=== PATIENT | male | born 1975 | race Caucasian/White ===

== ENCOUNTER 2024-12-31 14:29 | Inpatient (IN) | payer OTHER ==
[2024-12-31 15:50] VITALS: BMI 29.9
[2024-12-31] MEDS ORDERED: IBUPROFEN 400 MG TABLET (FP) PO PRN (17:36)
[2024-12-31] MEDS ORDERED: BENZOCAINE/MENTHOL (CHLORASEPTIC ) LOZENGE MM PRN (17:36)
[2024-12-31] MEDS ORDERED: MAG HYDROX/AL HYDROX/SIMETH 30 ML UNIT-DOSE CUP PO PRN (17:36)
[2024-12-31] MEDS ORDERED: MAGNESIUM HYDROX 2400MG/30ML ORAL SUSPENSION 30 ML CUP PO PRN (17:36)
[2024-12-31] MEDS ORDERED: ONDANSETRON *ODT* 4 MG TABLET SL PRN (17:36)
[2024-12-31] MEDS ORDERED: BENZONATATE 200 MG CAPSULE PO PRN (17:36)
[2024-12-31] MEDS ORDERED: LOPERAMIDE HCL 2 MG CAPSULE PO PRN (17:36)
[2024-12-31] MEDS ORDERED: POLYETHYLENE GLYCOL (HEALTHYLAX) 3350 17 GM PACKET PO PRN (17:36)
[2024-12-31] MEDS ORDERED: NALOXONE (NARCAN) HCL 4 MG/0.1 ML SPRAY NS PRN (17:36)
[2024-12-31] MEDS ORDERED: BISMUTH SUBSALICYLATE 524 MG/30 ML PO PRN (17:36)
[2024-12-31] MEDS ORDERED: methaDONE HCL 10 MG TABLET (FOR DETOX USE ONLY) ONE (18:56)
[2024-12-31] MEDS: methaDONE HCL 10 MG TABLET (FOR DETOX USE ONLY) PO ONE (19:03)
[2024-12-31] MEDS: THIAMINE 100 MG TABLET PO SCH (22:33)
[2024-12-31] MEDS: METHOCARBAMOL 500 MG TABLET PO PRN (22:33)
[2024-12-31] MEDS: MELATONIN 5 MG TABLETS PO SCH (22:34)
[2024-12-31] MEDS: IBUPROFEN 600 MG TABLET (FP) PO PRN (22:38)
[2024-12-31] MEDS: ASPIRIN 325 MG ENTERIC COATED TABLET (FP) PO SCH (23:21)
[2025-01-01] MEDS: guaiFENesin 600 MG TABLET.ER (FP) PO PRN (06:34)
[2025-01-01] MEDS: cloNIDine HCL 0.1 MG TABLET PO PRN (06:34)
[2025-01-01] MEDS: DICYCLOMINE HCL 10 MG CAPSULE PO PRN (06:34)
[2025-01-01] MEDS: ACETAMINOPHEN 325 MG TABLET (FP) PO PRN (06:36)
[2025-01-01] MEDS: diazePAM 5 MG TABLET PO ONE (09:40)
[2025-01-01] MEDS: methaDONE HCL 10 MG TABLET (FOR DETOX USE ONLY) PO ONE (09:40)
[2025-01-01] MEDS: PRENATAL VITAMINS W/ FOLIC ACID TABLET (FP) PO SCH (09:40)
[2025-01-01 11:09] LABS: POTASSIUM 3.8 mmol/L (3.5-5.1)
[2025-01-01 11:10] LABS: CALCIUM 9.2 mg/dL (8.5-10.1)
[2025-01-01 11:11] LABS: ALBUMIN 3.8 g/dl (3.4-5.0); BLOOD UREA NITROGEN 15.1 mg/dL (7-18)
[2025-01-01 11:14] LABS: HEMATOCRIT 38.8 % (35.4-49); HEMOGLOBIN 13.1 GM/dL (11.7-16.9); MCH 29.6 pg (25.7-33.7); MCHC 33.7 g/dl (32.0-35.9); MEAN PLT VOLUME 8.5 fl (7.5-11.1); PLATELET COUNT 316 10^3/uL (134-434); RBC 4.41 M/mm3 (4.00-5.60); WHITE BLOOD COUNT 6.7 K/mm3 (4.0-10.0)
[2025-01-01 11:15] LABS: BILIRUBIN,TOTAL 0.5 mg/dL (0.2-1); TOT PROT 7.3 g/dl (6.4-8.2)
[2025-01-01] MEDS: diazePAM 5 MG TABLET PO PRN (20:52)
[2025-01-01] MEDS: P-EPHED 60MG/TRIPROLIDI 2.5MG TABLET PO PRN (23:47)
[2025-01-02] MEDS: methaDONE HCL 10 MG TABLET (FOR DETOX USE ONLY) PO ONE ×2 (09:07→19:47)
[2025-01-02] MEDS: SUVOREXANT 10 MG TABLET PO PRN (21:24)
[2025-01-03] MEDS ORDERED: diazePAM 5 MG TABLET ONE (05:58)
[2025-01-03] MEDS ORDERED: METHOCARBAMOL 500 MG TABLET ONE (05:58)
[2025-01-03 07:27] VITALS: TEMP 98
[2025-01-03 09:32] VITALS: BP 142/90; PULSE 62; RESP 20
[2025-01-03] MEDS: methaDONE HCL 10 MG TABLET (FOR DETOX USE ONLY) PO ONE (09:53)
[2025-01-04] MEDS ORDERED: methaDONE HCL 10 MG TABLET (FOR DETOX USE ONLY) PO ONE (10:00)
[2025-01-05] MEDS ORDERED: methaDONE HCL 10 MG TABLET (FOR DETOX USE ONLY) PO ONE (10:00)
[2025-01-06] MEDS ORDERED: methaDONE HCL 10 MG TABLET (FOR DETOX USE ONLY) PO ONE (10:00)
== END 2025-01-03 13:13 | disposition home or self-care (01) | DRG 773 ==
LOC: YASAS 14:29 → Y3N 18:28
PROVIDERS: ADMIT Allergy & Immunology; ATTEND Allergy & Immunology
PROC: HZ2ZZZZ Detoxification Services for Substance Abuse Treatment (ICD-10-PCS; principal; 2024-12-31)
DX: F11.23 Opioid dependence with withdrawal (principal); F14.20 Cocaine dependence, uncomplicated; F12.20 Cannabis dependence, uncomplicated; F17.210 Nicotine dependence, cigarettes, uncomplicated; F19.24 Other psychoactive substance dependence with psychoactive substance-induced mood disorder; G47.00 Insomnia, unspecified; S09.90XA Unspecified injury of head, initial encounter; W19.XXXA Unspecified fall, initial encounter; Y93.89 Activity, other specified; Y92.238 Other place in hospital as the place of occurrence of the external cause; Z99.89 Dependence on other enabling machines and devices
CPT/HCPCS: 36415; 80053; 80305; 80307; 85027; 86780; 93005; 93010

== ENCOUNTER 2025-01-02 02:14 | Emergency (ER) | payer OTHER ==
[2025-01-02 02:24] VITALS: TEMP 97.4; BMI 39.9
[2025-01-02] MEDS ORDERED: LIDOCAINE 4% PATCH TP ONE (02:49)
[2025-01-02] MEDS ORDERED: diazePAM 5 MG TABLET ONE ×2 (02:49→06:02)
[2025-01-02] MEDS ORDERED: ACETAMINOPHEN 325 MG TABLET (FP) ONE (02:49)
[2025-01-02] MEDS: ACETAMINOPHEN 500 MG TABLET (FP) PO ONE (03:28)
[2025-01-02] MEDS: LIDOCAINE 4% PATCH TP ONE (03:29)
[2025-01-02] MEDS: diazePAM 5 MG TABLET PO ONE ×2 (03:29→06:04)
[2025-01-02] MEDS ORDERED: cloNIDine HCL 0.1 MG TABLET ONE (05:24)
[2025-01-02] MEDS: cloNIDine HCL 0.1 MG TABLET PO ONE (05:32)
[2025-01-02 05:33] VITALS: BP 114/60; PULSE 64; RESP 15
[2025-01-02] MEDS ORDERED: LIDOCAINE PATCH REMOVAL MC ONE (15:00)
== END 2025-01-02 06:45 | disposition home or self-care (01) ==
LOC: JER 02:14
DX: S09.90XA Unspecified injury of head, initial encounter (principal); R55 Syncope and collapse; W50.0XXA Accidental hit or strike by another person, initial encounter
CPT/HCPCS: 70450-TC; 72125-TC; 99284-25